=== PATIENT | female | born 1960 | race Caucasian/White ===

== ENCOUNTER 2020-08-24 10:03 | Emergency (ER) | payer BC, OTHER ==
[~2020-08-24] VITALS: Ht 154.9 cm; Wt 68.0 kg
[2020-08-24] MEDS ORDERED: BENADRYL25 MG PO (11:26)
[2020-08-24] MEDS ORDERED: ACID CONTROLLER20 MG PO (11:26)
[2020-08-24 11:36] VITALS: BP 143/54
== END 2020-08-24 11:39 | disposition home or self-care (01) ==
LOC: ER 10:03
DX: R22.0 Localized swelling, mass and lump, head (principal); T49.0X5A Adverse effect of local antifungal, anti-infective and anti-inflammatory drugs, initial encounter; Z91.040 Latex allergy status; Z88.2 Allergy status to sulfonamides; Z91.013 Allergy to seafood; Y92.9 Unspecified place or not applicable